=== PATIENT | female | born 1945 | race Caucasian/White ===

== ENCOUNTER 2017-12-07 10:30 | Inpatient (IN) | payer MEDICARE ==
[2017-12-14] MEDS ORDERED: FAMOTIDINE 20MG TABLET PO ONE (06:00)
[2017-12-14] MEDS ORDERED: CEFAZOLIN 2 Gram 2 GM/50 ML BAG IVPB ONE (06:00)
[2017-12-14] MEDS ORDERED: CELECOXIB 100 MG CAPSULE PO ONE (06:00)
[2017-12-14] MEDS ORDERED: METOCLOPRAMIDE 10 MG TABLET PO ONE (06:00)
[2017-12-14] MEDS ORDERED: SCOPOLAMINE 1 PATCH TDSY TD ONE (06:00)
[2017-12-14] MEDS ORDERED: VANCOMYCIN HCL 1,000 MG in DEXTROSE 5 % IN WATER 250 ML IVPB ONE ×2 (06:00)
[2017-12-14] MEDS ORDERED: BUPIVACAINE 0.5% W/EPI MPF 30 ML VIAL IVP ONE (09:36)
[2017-12-14] MEDS ORDERED: TRANEXAMIC ACID 1,000 MG/10 ML ML IV ONE ×2 (09:36→14:00)
[2017-12-14 10:50] LABS: ABO GROUP A; ANTIBODY SCREEN NEGATIVE (NEGATIVE); RH TYPE POSITIVE
[2017-12-14] MEDS ORDERED: HYDROMORPHONE HCL 2 MG/ML VIAL IM PRN (13:34)
[2017-12-14] MEDS ORDERED: ONDANSETRON HCL IV 4 MG/2 ML VIAL IVP PRN (13:34)
[2017-12-14] MEDS ORDERED: MAGNESIUM HYDROXIDE 30 ML UDC PO PRN (13:34)
[2017-12-14] MEDS ORDERED: BISACODYL 10 MG SUPP RC PRN (13:34)
[2017-12-14] MEDS ORDERED: NALOXONE 0.4 MG/1 ML VIAL IVP PRN (13:34)
[2017-12-14] MEDS ORDERED: ZOLPIDEM TARTRATE 5 MG TABLET PO PRN (13:34)
[2017-12-14] MEDS ORDERED: DIPHENHYDRAMINE HCL 25 MG CAPSULE PO PRN (13:34)
[2017-12-14] MEDS ORDERED: AL HYDROX/MAG HYDROX 30ML UD PO PRN (13:34)
[2017-12-14] MEDS ORDERED: ACETAMINOPHEN W/ CODEINE 300MG/60MG TABLET PO PRN ×2 (13:34)
[2017-12-14] MEDS ORDERED: KETOROLAC 30 MG/ML VIAL IVP PRN ×2 (13:34)
[2017-12-14] MEDS ORDERED: ACETAMINOPHEN 325 MG TAB PO PRN (13:34)
[2017-12-14] MEDS ORDERED: PROPOFOL 10 MG/ML VIAL IV ONE (14:00)
[2017-12-14] MEDS ORDERED: ROPIVACAINE HCL (NAROPIN) /PF 5MG/ML 20ML VIAL IV ONE (14:00)
[2017-12-14] MEDS ORDERED: DEXAMETHASONE 4 MG/ML 1ML VIAL IVP ONE (14:00)
[2017-12-14] MEDS ORDERED: MIDAZOLAM HCL 2MG/2ML VIAL IV ONE (14:00)
[2017-12-14] MEDS ORDERED: 0.9 % SODIUM CHLORIDE 10 ML VIAL IVP ONE (14:00)
--- NOTE | 2017-12-14 16:11 | Rehab Evaluation ---
Patient Information - Patient Information Diagnosis: L knee DJD Ordered Treatment: PT Evaluate and Treat Status: Initial Evaluation Surgery: Yes (L TKA) Date of Surgery: 12/14/17 Past Medical/Surgical Hx: PAST MEDICAL/SURGICAL HISTORY Past Surgical History left knee scope hyst c scopes x's 2 right foot sx vein sx PMH - Respiratory Hx Respiratory Disorders Yes Hx Asthma Yes: rarely uses inhaler usually prolem will be in the fall Hx Bronchitis Yes PMH - Cardiovascular Hx Cardiovascular Disorders Yes Hx Chest Pain Yes: sometimes when anxious,has had for years had neg work up yrsa ago Hx Deep Vein Thrombosis Yes: after vein sx 5 years ago Exercise Tolerance Good Hx of Migraines Yes: in past Comment: hyperlipidemia PMH - Neuro Hx Neurological Disorders Yes PMH - GI Hx Gastrointestinal Disorders No PMH - Hx Genitourinary Disorders No PMH - Endocrine Hx Endocrine Disorders Yes Hx Diabetes No Hx Thyroid Disease Yes: on meds PMH - Musculoskeletal Hx Musculoskeletal Disorders Yes Hx Arthritis Yes: left knee PMH - Psych Hx Psychiatric Problems Yes Hx Anxiety Yes PMH - Hematology/Oncology Hx Hematology/Oncology No Disorders Premorbid Status: Detail (The patient was independent with all mobility prior to surgery.) Social History: Detail (The patient lives alone in a one story house with 3 steps and one railing at the garage enterance and 2 steps and no railing at the porch enterance.) Precautions: [place], Fall, Other (WBAT on L LE.) - Time With Patient Total Time Spent With Patient (Min): 25 Treatment Procedures: Detail (Initial Evaluation) Subjective Information - Subjective Information Per Patient (The patient had complaints of nausea when standing. The patient had no complaints of pain, but did complain of numbness.) Objective Data - Mental Status Patient Orientation: Oriented x3 - Visual Perception Appears within normal limits for therapeutic activities - ROM Not within normal limits (The patient's L knee AROM is limited as to be expected following sugery. All other LE AROM is WNL.) - Strength/Tone Not within normal limits (The patient's L LE strength was not tested secondary to s/p surgery, however strength is functional ie: the patient was able to complete a SLR. The patient's R LE strength is generally 4+ to 5/5.) - Bed Mobility Independent (The patient was independent with supine to sit transfer and scooting up in bed.) - Transfers Independent (The patient was independent with sit to stand transfer.) - Balance Balance Sitting: Good Balance Standing: Good - Gait Detail (The patient stood to 2 wheeled walker WBAT on the L LE and experienced nausea. The patient stood a second time and ambulated 3 steps and again experienced nausea. The patient then stepped back to bed. The patient vomited with minimal emesis.) Therapy Assessment - Therapy Assessment Detail (The patient was independent with bed mobilty and transfers. The patient 's ambulation was limited due to nausea and minimal numbness in LE's. The patient was instructed to ambulate with nursing staff this pm to bathroom. Feel the patient will progress well with mobility.) Problem List - Problem List Physical Therapy Problem List: Detail (1) Decreased L knee AROM and L LE strength 2) Nonambulatory on stairs 3) Limited ambulation distance) Goals - Goals Physical Therapy Goals: 1) The patient will ambulate independently with assistive device household distances WBAT on the L LE. 2) The patient will ambulate on stairs with supervision using proper technique 3) The patient will be independent with TKA HEP. Prognosis - Prognosis Good Plan - Plan Physical Therapy Plan: PT 1 to 2 times a day for gait training, instruction in HEP until inpatient PT goals have been met.
[2017-12-14] MEDS: HYDROCODONE/APAP 10/325 TABLET PO PRN ×2 (16:37→20:36)
[2017-12-14] MEDS ORDERED: TRAMADOL HCL 50 MG TABLET PO PRN (18:46)
[2017-12-14] MEDS: CEFAZOLIN 2 Gram 2 GM/50 ML BAG IVPB SCH (20:36)
[2017-12-14] MEDS: POTASSIUM CHLORIDE/D5-0.9%NACL 20 MEQ/1,000 ML BAG IV SCH ×2 (22:13→23:02)
[2017-12-14] MEDS: PATIENT OWN MED: LOVASTATIN 20 MG PO SCH (22:14)
[2017-12-14] MEDS: DOCUSATE SODIUM 100 MG CAPSULE PO SCH (22:14)
[2017-12-15] MEDS: HYDROCODONE/APAP 10/325 TABLET PO PRN ×6 (01:17→23:13)
[2017-12-15] MEDS: CEFAZOLIN 2 Gram 2 GM/50 ML BAG IVPB SCH ×2 (05:00→13:38)
[2017-12-15] MEDS: PATIENT OWN MED: LEVOTHYROXINE 112 MCG PO SCH (06:15)
[2017-12-15 07:05] LABS: HEMATOCRIT 37.3 % (35.0-47.0); HEMOGLOBIN 11.9 gm/dl (11.6-16.0)
[2017-12-15 07:21] LABS: BLOOD UREA NITROGEN 12 mg/dL (8-23); CREATININE 0.6 mg/dL (0.5-0.9); EST GLOMERULAR FILTRATION RATE > 60 mL/min; GLUCOSE,RANDOM 110 mg/dL (74-109)
--- NOTE | 2017-12-15 08:39 | Rehab Evaluation ---
Patient Information - Patient Information Diagnosis: L knee DJD Ordered Treatment: OT Evaluate and Treat Status: Initial Evaluation Surgery: Yes (L TKA) Date of Surgery: 12/14/17 Past Medical/Surgical Hx: PAST MEDICAL/SURGICAL HISTORY Past Surgical History left knee scope hyst c scopes x's 2 right foot sx vein sx PMH - Respiratory Hx Respiratory Disorders Yes Hx Asthma Yes: rarely uses inhaler usually prolem will be in the fall Hx Bronchitis Yes PMH - Cardiovascular Hx Cardiovascular Disorders Yes Hx Chest Pain Yes: sometimes when anxious,has had for years had neg work up yrsa ago Hx Deep Vein Thrombosis Yes: after vein sx 5 years ago Exercise Tolerance Good Hx of Migraines Yes: in past Comment: hyperlipidemia PMH - Neuro Hx Neurological Disorders Yes PMH - GI Hx Gastrointestinal Disorders No PMH - Hx Genitourinary Disorders No PMH - Endocrine Hx Endocrine Disorders Yes Hx Diabetes No Hx Thyroid Disease Yes: on meds PMH - Musculoskeletal Hx Musculoskeletal Disorders Yes Hx Arthritis Yes: left knee PMH - Psych Hx Psychiatric Problems Yes Hx Anxiety Yes PMH - Hematology/Oncology Hx Hematology/Oncology No Disorders Premorbid Status: Detail (The patient was independent with all mobility prior to surgery.) Social History: Detail (The patient lives alone in a one story condo with a basement, she mainly stays on the main floor. She has 3 steps and one railing at the garage entrance and 2 steps and no railing at the porch entrance. She has a walk in shower with small corner shower seat and 1 railing outside of the shower. She normally stands to shower. She has an elevated toilet seat, no grab bar. Prior to surgery she was Ind with all ADLs, meal prep , laundry and home mgmt tasks. She has a 2 wheeled walker and straight cane.) Precautions: [place], Fall, Other (WBAT on L LE.) - Time With Patient Total Time Spent With Patient (Min): 45 Treatment Procedures: Detail (OT eval low complexity) Subjective Information - Subjective Information Per Patient Objective Data - Pain Pain Present: Yes (07/31) - Mental Status Patient Orientation: Oriented x3 - Visual Perception Appears within normal limits for therapeutic activities - ROM Within normal limits (Scott UE AROM WNL) - Strength/Tone Within normal limits (Scott UE strength WNL) - Coordination Appears within normal limits for therapeutic activities - Bed Mobility Independent (Pt was Ind with supine to sit with use of hospital bed rail and with HOB raised.) - Transfers Independent (Ind with sit to stand from EOB and raised chair, she had moderate difficulty with sit to stand from standard height toilet even with use of grab bar although she was able to come to standing Indly after second attempt.) - Balance Balance Sitting: Good Balance Standing: Good - Sensation Intact - Gait Detail (Pt ambulated in room and bathroom Indly with use of 2 wheeled walker.) - ADL's/IADL's Detail (Pt educated re: modified LE dressing techinques and she was able to demonstrate Ind with doffing slipper socks, donning shorts and donning slip on shoes although she was unable to don left shoe over heel due to dressings and edema. Pt able to don slipper socks Indly. Pt able to complete toileting Indly. Pt very concerned about showering and IADLs after return home as she lives alone.) Therapy Assessment - Therapy Assessment Detail (Pt able to demonstrate Ind with modified LE dressing techniques and toileting. She) Problem List - Problem List Physical Therapy Problem List: Detail (1) Decreased L knee AROM and L LE strength 2) Nonambulatory on stairs 3) Limited ambulation distance) Goals - Goals Physical Therapy Goals: 1) The patient will ambulate independently with assistive device household distances WBAT on the L LE. 2) The patient will ambulate on stairs with supervision using proper technique 3) The patient will be independent with TKA HEP. Plan - Plan Physical Therapy Plan: PT 1 to 2 times a day for gait training, instruction in HEP until inpatient PT goals have been met.
--- NOTE | 2017-12-15 09:18 | Operative Note ---
DATE: 12/14/2017 PREOPERATIVE DIAGNOSIS: END-STAGE ARTHROSIS OF THE LEFT KNEE. POSTOPERATIVE DIAGNOSIS: END-STAGE ARTHROSIS OF THE LEFT KNEE. PROCEDURE: Cemented left total knee arthroplasty using [employer]se II components , with a size 5 [place] Chrome femur, size 4 stemmed tibial baseplate, an 11 mm lipped tibial insert, and a 35 mm all-plastic patella. STAFF SURGEON: EDDA HARVEY M.D. ANESTHESIA: SPINAL. PREPARATION: CHLORAPREP. INDIVIDUAL CONSIDERATIONS: None. PROCEDURE: The patient was taken to the Operating Room and placed supine on the operating table. She had a successful induction of a spinal anesthetic. Her left lower extremity was prepped and draped in the usual fashion. The limb was elevated and the tourniquet was inflated to 250 mmHg. The patient had a midline approach to the knee. Sharp dissection carried down through the skin and subcutaneous tissue. Small veins were coagulated with a Bovie. A medial arthrotomy was performed. The patella was everted and the knee was flexed. She had exposed bone with bone loss in all compartments. The fat pad was resected, the ACL was sacrificed, provisional anterior meniscectomies were performed, and the capsule was released from the medial proximal tibia. The initial femoral marine pilot hole was then made free hand. The intramedullary femoral cutting jig was placed. It was cut in 7.0 degrees of valgus and adjusted for rotation and secured with pins for a 10 mm resection. The initial transverse cut was then made. A skin guide was placed for the anterior and posterior marine pilot holes. It was found that a size 5 would be appropriate but I had to translate it anteriorly 2 mm. The anterior and posterior cuts followed by chamfer cuts were made, osteophytes were removed, and a size 5 trial was placed and found to fit well. The tibia was brought forward and the remainder of the meniscal remnants were removed with a Bovie. The extraarticular tibial cutting jig was placed. It was cut in neutral with a 3-degree AP slope. Care was taken to adjust for rotation and flexion using the extraarticular alignment guide and bony landmarks. It was set for a 9 mm resection, keyed off the high medial side and secured with pins. When cutting the tibia, care was taken to preserve the PCL insertion on the tibia. After removing osteophytes, I was able to fit a size 4. It was adjusted for rotation and secured with pins. With an 11 mm trial and the femoral trial, there was excellent motion and stability. The femoral marine pilot holes were impacted and the triflange tibial stamp was impacted and these trial components were removed. The patient had sufficient bone for a patella but just barely. I removed about 7 to 9 mm compensating for cartilage loss. I had sufficient remaining. I was able to fit a 35 patella and three marine pilot holes were drilled. The tourniquet was let down briefly to get the bleeders posteriorly and then placed back up again. The knee was then thoroughly irrigated out with pulsatile Betadine with saline to remove any visual or palpable debris. A size 4 stemmed tibial baseplate was cemented into place followed by impaction of the 11 mm lipped tibial insert followed by cementing in the size 5 [place] Chrome femur followed by cementing in the 35 mm patella. Implant surfaces were compressed and after the cement had set, there was excellent motion and stability, ligamentous balance, rotation, alignment, and patellofemoral tracking were normal. No lateral release was required. Again, thorough irrigation. The tourniquet was let down and hemostasis was obtained with a Bovie. I then infiltrated the skin and capsule with 30 mL of 0.5% Marcaine with Epinephrine. The capsule was then closed with a running #2 Quill, the subcutaneous was closed in layers with a running #0 Quill, and the skin was closed with jameson. The patient did receive 1 gram of Tranexamic Acid preoperatively. I mixed a gram of Tranexamic Acid with 30 mL of saline and injected it into the knee through a sterile #18 gauge needle and a sterile [place] compressive EYAL dressing was applied. The patient tolerated the procedure well. Needle and sponge counts were correct, estimated blood loss was minimal, and she was taken back to Recovery in good condition. There were no complications. JOB NUMBER: [id number] [facility]
[2017-12-15] MEDS: RIVAROXABAN 10 MG TABLET PO SCH (09:33)
[2017-12-15] MEDS: ASPIRIN 81 MG TABEC PO SCH (09:33)
[2017-12-15] MEDS: FERROUS SULFATE 325 MG TAB PO SCH (09:33)
[2017-12-15] MEDS: DOCUSATE SODIUM 100 MG CAPSULE PO SCH ×2 (09:33→21:09)
--- NOTE | 2017-12-15 10:03 | Physical Therapy Tx Note ---
Physical Therapy Tx Note - Treatment Note Tolerated: Fair Total Time Spent With Patient: 25 Physical Therapy Tx Note: Detail (The patient was in bed and complaining of level 3 plus pain when PT arrived and nausea. The patient had difficulty lifting LE this am ( was independent yesterday) with supine to sit transfer required min PA to lift L LE, was independent with upper body. The patient was independent with sit to and from stand transfer. The patient ambulated with wheeled walker WBAT on the L LE a distance of 48 feet x 1, independently. The patient declined ambulation on stairs this am. The patient was instructed in use of strap to lift LE into bed for sit to supine and was able to acheive independently. The patient completed HEP of TKA exercises including: gluteal sets, ankle pumps, quad sets, heel slides, hamstring sets and assisted SLR with use of strap, all x 5 reps. The patient had difficulty isolating quad and completing SLR. Patient had complaints of hamstring insertion pain. Will see patient this afternoon for further review of HEP and gait training on stairs.) Physical Therapy Problem List: Detail (1) Decreased L knee AROM and L LE strength 2) Nonambulatory on stairs 3) Limited ambulation distance) Physical Therapy Goals: 1) The patient will ambulate independently with assistive device household distances WBAT on the L LE.( Goal Met) 2) The patient will ambulate on stairs with supervision using proper technique 3) The patient will be independent with TKA HEP.(Goal partially met) Physical Therapy Plan: PT 1 to 2 times a day for gait training, instruction in HEP until inpatient PT goals have been met.
--- NOTE | 2017-12-15 15:24 | Physical Therapy Tx Note ---
Physical Therapy Tx Note - Treatment Note Tolerated: Good Total Time Spent With Patient: 25 Physical Therapy Tx Note: Detail (The patient was in bed with family and friend present. The patient had less complaints of pain. The patient was independent with supine to and from sit transfer with use of strap to lift L LE. The patient 's HEP was reviewed and patient was instructed in knee flexion ( heel slides seated). The patient ambulated independently with wheeled walker WBAT on the L LE a distance of 50 feet x 1. The patient ambulated on stairs with supervision for safety only using proper technique. The patient has met all inpatient goals and is discharged from inpatient therapy.) Physical Therapy Problem List: Detail (1) Decreased L knee AROM and L LE strength 2) Nonambulatory on stairs 3) Limited ambulation distance) Physical Therapy Goals: 1) The patient will ambulate independently with assistive device household distances WBAT on the L LE.( Goal Met) 2) The patient will ambulate on stairs with supervision using proper technique 3) The patient will be independent with TKA HEP.(Goal partially met) Prognosis: Good Physical Therapy Plan: The patient is discharged from inpatient PT secondary to all PT goals have been met.
[2017-12-15] MEDS: PATIENT OWN MED: LOVASTATIN 20 MG PO SCH (21:10)
[2017-12-16] MEDS: PATIENT OWN MED: LEVOTHYROXINE 112 MCG PO SCH (06:21)
[2017-12-16] MEDS: HYDROCODONE/APAP 10/325 TABLET PO PRN ×3 (06:22→17:32)
[2017-12-16 06:28] LABS: HEMATOCRIT 39.4 % (35.0-47.0); HEMOGLOBIN 12.2 gm/dl (11.6-16.0)
[2017-12-16 06:42] LABS: BLOOD UREA NITROGEN 7 mg/dL (8-23); CREATININE 0.6 mg/dL (0.5-0.9); EST GLOMERULAR FILTRATION RATE > 60 mL/min; GLUCOSE,RANDOM 103 mg/dL (74-109)
[2017-12-16] MEDS: DOCUSATE SODIUM 100 MG CAPSULE PO SCH ×2 (11:10→21:11)
[2017-12-16] MEDS: ASPIRIN 81 MG TABEC PO SCH (11:10)
[2017-12-16] MEDS: FERROUS SULFATE 325 MG TAB PO SCH (11:10)
[2017-12-16] MEDS: RIVAROXABAN 10 MG TABLET PO SCH (11:11)
--- NOTE | 2017-12-16 20:35 | Discharge Summary ---
DATE OF ADMISSION: DATE OF DISCHARGE: 12/17/2017 DATE OF SURGERY: 12/14/2017 HISTORY: Myra is a delightful 72-year-old female who presents with end-stage arthrosis of her left knee. She was admitted after a left total knee arthroplasty. Postoperatively, she did well. Her discharge hemoglobin was above 9. She did not require transfusion. DISCHARGE INSTRUCTIONS: The plan was to transport her to rehab. She should be maintained on Xarelto for DVT prophylaxis for a total of 5 days post-op, which means she will need two additional days. Then, she should take a regular or baby Aspirin for an additional 30 days. She has a EYAL dressing, which has suction and after 7 days, that can be removed. Otherwise, it is okay to get the dressing wet. You should go ahead and remove the vacuum pump while she takes a shower, just cover the end with tape and then hook it back up to the small vacuum pump. Sutures should be removed on December 28. She should follow-up in my office in 4 weeks. FINAL DIAGNOSIS/PRIMARY DIAGNOSIS: END-STAGE ARTHROSIS OF THE LEFT KNEE. SECONDARY DIAGNOSIS: OPERATIVE BLOOD LOSS ANEMIA. OPERATIONS AND PROCEDURES: CEMENTED LEFT TOTAL KNEE ARTHROPLASTY. DISCHARGE CONDITION: GOOD. JOB NUMBER: [id number] [facility]
[2017-12-16] MEDS: PATIENT OWN MED: LOVASTATIN 20 MG PO SCH (21:10)
[2017-12-17] MEDS: HYDROCODONE/APAP 10/325 TABLET PO PRN ×2 (01:39→06:27)
[2017-12-17] MEDS: PATIENT OWN MED: LEVOTHYROXINE 112 MCG PO SCH (06:24)
[2017-12-17] MEDS: DOCUSATE SODIUM 100 MG CAPSULE PO SCH (07:50)
[2017-12-17] MEDS: FERROUS SULFATE 325 MG TAB PO SCH (07:50)
[2017-12-17] MEDS: ASPIRIN 81 MG TABEC PO SCH (07:50)
[2017-12-17] MEDS: RIVAROXABAN 10 MG TABLET PO SCH (07:50)
--- NOTE | 2017-12-18 14:09 | RADIOLOGY REPORT ---
DATE: 12/15/2017. EXAM: PORTABLE CHEST. HISTORY: Difficulty in breathing. TECHNIQUE: Portable AP upright view of the chest was performed. FINDINGS: Heart size is normal. Lung paige are clear. The osseous structures are normal. IMPRESSION: NO ACUTE DISEASE PROCESS. JOB NUMBER: [id number] [facility]
== END 2017-12-17 08:10 | disposition home health service (06) | DRG 470 ==
LOC: EDSTATUS 12-14 09:00 → SUR 12-14 09:35 → MEDSURG 12-14 09:35 → SUR 12-14 14:25 → MEDSURG 12-14 14:25
PROVIDERS: ADMIT Orthopaedic Surgery; ATTEND Orthopaedic Surgery
PROC: 0SRD0J9 Replacement of Left Knee Joint with Synthetic Substitute, Cemented, Open Approach (ICD-10-PCS; principal; 2017-12-14 12:00)
DX: M17.12 Unilateral primary osteoarthritis, left knee (principal); D62 Acute posthemorrhagic anemia
CPT/HCPCS: 71045; 76942; 80048; 85014; 85018; 86850; 86900; 86901; 97110; 97530; C1776; J2405; J3480; J7060